=== PATIENT | female | born 1960 | race African-American/Black ===

== ENCOUNTER 2017-05-21 18:58 | Emergency (ER) | payer SELFPAY ==
[~2017-05-21] VITALS: Ht 154.9 cm; Wt 97.7 kg
[2017-05-21] MEDS ORDERED: SIMV-259 PO (19:02)
[2017-05-21] MEDS ORDERED: LOSA50TA37 PO (19:02)
[2017-05-21] MEDS ORDERED: ACET-2116 PO (19:02)
[2017-05-21] MEDS ORDERED: ASCO60LO10 PO (19:02)
[2017-05-21] MEDS ORDERED: METO25 PO (19:02)
[2017-05-21 20:08] VITALS: BP 146/79
== END 2017-05-21 20:22 | disposition home or self-care (01) ==
LOC: EMS 19:00
DX: H66.91 Otitis media, unspecified, right ear (principal); H72.91 Unspecified perforation of tympanic membrane, right ear; I10 Essential (primary) hypertension; E78.00 Pure hypercholesterolemia, unspecified
CPT/HCPCS: 99283

== ENCOUNTER 2017-06-25 14:06 | Emergency (ER) | payer MEDICAID ==
[~2017-06-25] VITALS: Ht 154.9 cm; Wt 118.1 kg
[~2017-06-25 14:06] MED LIST: ACET-2116 PO; ASCO60LO10 PO; LOSA50TA37 PO; METO25 PO; SIMV-259 PO
[2017-06-25 15:24] VITALS: BP 142/92
[2017-06-25] MEDS ORDERED: IBUPROFEN 800 MG TABLET PO ONE (15:30)
== END 2017-06-25 15:35 | disposition home or self-care (01) ==
LOC: EMS 14:07
DX: H60.91 Unspecified otitis externa, right ear (principal); H66.91 Otitis media, unspecified, right ear; E78.00 Pure hypercholesterolemia, unspecified; I10 Essential (primary) hypertension
CPT/HCPCS: 99283

== ENCOUNTER 2017-07-14 19:22 | Emergency (ER) | payer MEDICAID ==
[~2017-07-14] VITALS: Ht 154.9 cm; Wt 104.5 kg
[2017-07-14] MEDS ORDERED: ACET-2247 PO (19:35)
[2017-07-14] MEDS ORDERED: KETOROLAC TROMETHAMINE 60 MG/2 ML VIAL IM ONE (20:00)
[2017-07-14 20:56] LABS: GLUCOSE, URINE (UA) NEGATIVE (NEGATIVE); KETONES,URINE NEGATIVE (NEGATIVE); LEUKOCYTE ESTERASE ,URINE MODERATE (NEGATIVE); OCCULT BLOOD,URINE NEGATIVE (NEGATIVE); PROTEIN,URINE NEGATIVE (NEGATIVE)
[2017-07-14 21:03] LABS: ADD UA MICROSCOPIC YES; APPEARANCE,URINE HAZY (CLEAR)
[2017-07-14 21:11] LABS: RBC,URINE 0-2 /HPF (0-2)
[2017-07-14 21:12] LABS: SQUAMOUS EPITHELIAL CELL,UR Many /LPF (None Seen)
[2017-07-14] MEDS ORDERED: NITROFURANTOIN/NITROFURAN MAC 100 MG CAPSULE [MACROBID] PO ONE (21:45)
[2017-07-14 21:55] VITALS: BP 138/85
== END 2017-07-14 22:00 | disposition home or self-care (01) ==
LOC: EMS 19:24
DX: S39.012A Strain of muscle, fascia and tendon of lower back, initial encounter (principal); N39.0 Urinary tract infection, site not specified; I10 Essential (primary) hypertension; E78.00 Pure hypercholesterolemia, unspecified; X58.XXXA Exposure to other specified factors, initial encounter; Y93.89 Activity, other specified; Y92.89 Other specified places as the place of occurrence of the external cause; Y99.8 Other external cause status
CPT/HCPCS: 73503; 81001; 87086; 96372; 99285; J1885